=== PATIENT | female | born 1970 | race Two or more races ===

== ENCOUNTER 2024-08-02 23:44 | Emergency (ER) | payer MEDICAID ==
[~2024-08-02] VITALS: Ht 157.5 cm; Wt 54.4 kg
[2024-08-03] MEDS ORDERED: METF-442 PO (00:05)
[2024-08-03] MEDS ORDERED: PROPOFOL 100 ML ONE (02:04)
[2024-08-03] MEDS ORDERED: PROPOFOL 100 ML IV PRN (02:30)
[2024-08-03 02:43] LABS: BASOPHILS % (AUTO) 0.2 % (0.0-2.0); EOSINOPHILS % (AUTO) 0.2 % (0.0-7.0); HEMATOCRIT 44.5 % (31.2-41.9); HEMOGLOBIN 14.9 g/dL (10.9-14.3); LYMPHOCYTES # (AUTO) 1.2 K/uL (0.8-4.8); LYMPHOCYTES % (AUTO) 31.6 % (20.5-51.5); MEAN CORPUSCULAR HEMOGLOBIN 28.8 uug (24.7-32.8); MEAN CORPUSCULAR HGB CONC 34 g/dL (32.3-35.6); MEAN CORPUSCULAR VOLUME 85.9 fL (75.5-95.3); MONOCYTES # (AUTO) 0.2 K/uL (0.1-1.30); MONOCYTES % (AUTO) 4.4 % (0.0-11.0); NEUTROPHILS # (AUTO) 2.5 K/uL (1.8-8.9); NEUTROPHILS % (AUTO) 63.6 % (38.5-71.5); PLATELET COUNT (AUTO) 151 K/uL (179-408); RED BLOOD CELL COUNT(AUTO) 5.18 MIL/uL (3.63-4.92); RED CELL DISTRIBUTION WIDTH 13.8 % (12.3-17.7); WHITE BLOOD COUNT (AUTO) 3.9 K/uL (3.8-11.8)
[2024-08-03 02:44] LABS: DIFFERENTIAL COMMENT 1
[2024-08-03] MEDS: IV NORMAL SALINE 1000 ML BAG IV ONE ×3 (02:45→08:38)
[2024-08-03 02:47] LABS: CALCIUM 8.6 mg/dL (8.5-10.1); CARBON DIOXIDE 23 mmol/L (21-32); CHLORIDE 91 mmol/L (98-107); CREATININE 1.5 mg/dL (0.6-1.3); POTASSIUM 4.5 mmol/L (3.5-5.1); SODIUM SERUM 128 mmol/L (136-145); UREA NITROGEN, BLOOD 35 mg/dL (7-18)
[2024-08-03 02:49] LABS: GLUCOSE 443 mg/dL (74-106)
[2024-08-03] MEDS: VANCOMYCIN IV 1,000 MG in IV DEXTROSE 5% 250 ML IV ONE (02:50)
[2024-08-03 02:59] LABS: LACTIC ACID 7.3 mmol/L (0.4-2.0)
[2024-08-03 03:00] LABS: ALANINE AMINOTRANSFERASE 30 U/L (14-59); ALKALINE PHOSPHATASE 86 U/L (50-136); ASPARTATE AMINOTRANSFERASE 24 U/L (15-37); BILIRUBIN,DIRECT 2.2 mg/dL (0.0-0.2); BILIRUBIN,TOTAL 2.9 mg/dL (0.2-1.0); NT-PRO BNP 1517 pg/mL (0-125); TOTAL PROTEIN, SERUM 7.4 g/dL (6.4-8.2)
[2024-08-03] MEDS ORDERED: VANCOMYCIN IV 200 ML ONE (03:03)
[2024-08-03] MEDS ORDERED: CEFTRIAXONE /D5W 50ML IVPB **ER PYXIS IV ONE (03:03)
[2024-08-03 03:04] LABS: *BILIRUBIN,URIN 1+ (NEGATIVE); *CLARITY,URINE CLEAR (CLEAR); *COLOR,URINE YELLOW (YELLOW); *KETONES,URINE TRACE (NEGATIVE); *PROTEIN,URINE 2+ (NEGATIVE); LEUKOCYTE ESTERASE ,URINE NEGATIVE (NEGATIVE); NITRITE, URINE NEGATIVE (NEGATIVE); UGLUCOSE 3+ (NEGATIVE)
[2024-08-03] MEDS ORDERED: CLINDAMYCIN 600 MG PIGGYBACK**ER OMNI IV ONE (03:04)
[2024-08-03 03:05] LABS: *BLOOD, URINE TRACE (NEGATIVE)
[2024-08-03 03:06] LABS: BACTERIA,URINE FEW /HPF (NONE SEEN); MUCUS,URINE MANY /LPF (0-FEW); RBC,URINE 0-3 /HPF (0-3); SQUAMOUS EPITHELIAL CELL,UR FEW /HPF (NONE SEEN); WBC,URINE 0-3 /HPF (0-3)
[2024-08-03 03:07] LABS: ABG BASE EXCESS -9.9 mmol/L (-2.0-3.0); ABG HCO3 19.8 mmol/L (21.0-28.0); ABG PCO2 58.8 mmHg (32.0-45.0); ABG PH 7.145 (7.350-7.450); ABG PO2 95.9 mmHg (83.0-108.0); ABG SITE RIGHT RADIAL; ABG TOTAL HEMOGLOBIN 15.8 G/dL (12.0-16.0); COHb 0.9 % (0.5-1.5); MetHb 0.2 % (0.0-1.5); O2Hb 94.5 % (94.0-98.0); VT, ABG 500 mL
[2024-08-03] MEDS: CEFTRIAXONE 1 G in IV DEXTROSE 5% 50 ML IV ONE (03:35)
[2024-08-03] MEDS ORDERED: INSULIN REGULAR, HUMAN 1000 UNIT/10 ML VIAL SQ PRN (03:45)
[2024-08-03] MEDS ORDERED: MAGNESIUM HYDROXIDE 30 ML LIQUID UDC PO PRN (03:45)
[2024-08-03] MEDS ORDERED: IV NS 1000 ML 1,000 ML IV PRN (03:45)
[2024-08-03] MEDS ORDERED: ACETAMINOPHEN 325 MG TABLET PO PRN (03:45)
[2024-08-03] MEDS ORDERED: DEXTROSE 50% 50 ML DISP.SYRIN IV PRN (03:45)
[2024-08-03] MEDS ORDERED: ONDANSETRON 4 MG/2 ML VIAL IV PRN (03:45)
[2024-08-03] MEDS ORDERED: REMEDY ESSENTIAL ZINC PASTE 113 GM TP PRN (03:45)
[2024-08-03] MEDS ORDERED: INSULIN REGULAR, HUMAN 1000 UNIT/10 ML VIAL ONE (03:56)
[2024-08-03] MEDS: INSULIN REGULAR, HUMAN 1000 UNIT/10 ML VIAL IV ONE ×2 (03:58→05:07)
[2024-08-03] MEDS: BLOOD SUGAR DIAGNOSTIC 1 EACH STRIP VI SCH (04:04)
[2024-08-03] MEDS: CLINDAMYCIN PHOSPHATE IV 600 MG in IV DEXTROSE 5% 100 ML IV ONE (04:10)
[2024-08-03] MEDS ORDERED: MIDAZOLAM HCL 10 MG/2 ML VIAL ONE (04:15)
[2024-08-03 04:38] LABS: ABG BASE EXCESS -21.5 mmol/L (-2.0-3.0); ABG HCO3 12.8 mmol/L (21.0-28.0); ABG PCO2 73.9 mmHg (32.0-45.0); ABG PH 6.856 (7.350-7.450); ABG PO2 85.5 mmHg (83.0-108.0); ABG SITE RIGHT BRACHIAL; ABG TOTAL HEMOGLOBIN 12.9 G/dL (12.0-16.0); AaDO2 85.4 mmHg; COHb 0.4 % (0.5-1.5); MetHb 0.2 % (0.0-1.5); O2Hb 87.8 % (94.0-98.0); VT, ABG 500 mL
[2024-08-03] MEDS ORDERED: SODIUM BICARBONATE 8.4% 50 MEQ/50 ML DISP.SYRIN IV ONE ×2 (05:22→06:46)
[2024-08-03] MEDS ORDERED: CALCIUM CHLORIDE 1 GM/10 ML DISP.SYRIN IVP ONE ×2 (05:23→06:46)
[2024-08-03] MEDS ORDERED: TRANEXAMIC ACID 1,000 MG/10 ML VIAL ONE (05:49)
[2024-08-03] MEDS: PIPERACILLIN SODIUM/TAZOBACTAM 3.375 G in IV DEXTROSE 5% 50 ML IV SCH (06:00)
[2024-08-03] MEDS ORDERED: NOREPINEPHRINE 8MG/NS 250ML 250 ML IV ONE (06:11)
[2024-08-03 06:30] LABS: ABG BASE EXCESS -25.5 mmol/L (-2.0-3.0); ABG HCO3 10.6 mmol/L (21.0-28.0); ABG PCO2 76.7 mmHg (32.0-45.0); ABG PH 6.757 (7.350-7.450); ABG PO2 101.6 mmHg (83.0-108.0); ABG SITE RIGHT BRACHIAL; ABG TOTAL HEMOGLOBIN 13.2 G/dL (12.0-16.0); COHb 0.4 % (0.5-1.5); MetHb 0.2 % (0.0-1.5); O2Hb 91.2 % (94.0-98.0); VT, ABG 500 mL
[2024-08-03] MEDS ORDERED: SODIUM BICARBONATE 8.4% 150 MEQ in IV D5W 1000ML 1,000 ML IV STA (06:34)
[2024-08-03] MEDS: TRANEXAMIC ACID 1,000 MG/10 ML VIAL IR ONE (06:38)
[2024-08-03 06:52] LABS: BASOPHILS % (AUTO) 0.2 % (0.0-2.0); EOSINOPHILS # (AUTO) 0.1 K/uL (0.0-0.7); EOSINOPHILS % (AUTO) 1.2 % (0.0-7.0); HEMATOCRIT 40.6 % (31.2-41.9); HEMOGLOBIN 12.6 g/dL (10.9-14.3); LYMPHOCYTES # (AUTO) 3.4 K/uL (0.8-4.8); LYMPHOCYTES % (AUTO) 67.4 % (20.5-51.5); MEAN CORPUSCULAR HGB CONC 31 g/dL (32.3-35.6); MEAN CORPUSCULAR VOLUME 93.7 fL (75.5-95.3); MONOCYTES # (AUTO) 0.1 K/uL (0.1-1.30); MONOCYTES % (AUTO) 2.3 % (0.0-11.0); NEUTROPHILS # (AUTO) 1.5 K/uL (1.8-8.9); NEUTROPHILS % (AUTO) 28.9 % (38.5-71.5); PLATELET COUNT (AUTO) 122 K/uL (179-408); RED BLOOD CELL COUNT(AUTO) 4.34 MIL/uL (3.63-4.92); RED CELL DISTRIBUTION WIDTH 14.9 % (12.3-17.7)
[2024-08-03 06:53] LABS: DIFFERENTIAL COMMENT 1
[2024-08-03 06:58] LABS: CALCIUM 10.4 mg/dL (8.5-10.1); POTASSIUM 3.5 mmol/L (3.5-5.1)
[2024-08-03 07:00] VITALS: BP 67/47; O2SAT 90
[2024-08-03] MEDS ORDERED: ETOMIDATE 20 MG/10 ML VIAL ONE (07:00)
[2024-08-03] MEDS: IV NS 1000 ML 1,000 ML IV ONE (07:00)
[2024-08-03] MEDS: NOREPINEPHRINE 8MG/NS 250ML 250 ML IV PRN (07:00)
[2024-08-03] MEDS: MAGNESIUM SULFATE/D5W 100 ML IV SCH (07:00)
[2024-08-03] MEDS ORDERED: ATROPINE SULFATE 1 MG/10 ML DISP.SYRIN ONE (07:07)
[2024-08-03 07:58] LABS: LYMPHOCYTES % (MANUAL) 72 % (20-40); METAMYELOCYTES % 11 % (0-1); MONOCYTES % (MANUAL) 3 % (2-10); MYELOCYTES % 2 % (0-0); NEUTROPHILS % (MANUAL) 12 % (42-75); PLATELET ESTIMATE DECREASED; SMUDGE CELLS FEW
[2024-08-03 08:20] LABS: BASOPHILS % (AUTO) 0.1 % (0.0-2.0); DIFFERENTIAL COMMENT 0; EOSINOPHILS # (AUTO) 0.1 K/uL (0.0-0.7); EOSINOPHILS % (AUTO) 0.8 % (0.0-7.0); HEMATOCRIT 29.4 % (31.2-41.9); HEMOGLOBIN 9.1 g/dL (10.9-14.3); LYMPHOCYTES # (AUTO) 6.1 K/uL (0.8-4.8); LYMPHOCYTES % (AUTO) 77.9 % (20.5-51.5); MEAN CORPUSCULAR HEMOGLOBIN 29.1 uug (24.7-32.8); MEAN CORPUSCULAR HGB CONC 31 g/dL (32.3-35.6); MEAN CORPUSCULAR VOLUME 93.6 fL (75.5-95.3); MONOCYTES # (AUTO) 0.2 K/uL (0.1-1.30); MONOCYTES % (AUTO) 2.9 % (0.0-11.0); NEUTROPHILS # (AUTO) 1.4 K/uL (1.8-8.9); NEUTROPHILS % (AUTO) 18.3 % (38.5-71.5); RED BLOOD CELL COUNT(AUTO) 3.14 MIL/uL (3.63-4.92); RED CELL DISTRIBUTION WIDTH 14.2 % (12.3-17.7); WHITE BLOOD COUNT (AUTO) 7.9 K/uL (3.8-11.8)
[2024-08-03 08:24] LABS: PLATELET COUNT (AUTO) 49 K/uL (179-408)
[2024-08-03 08:26] LABS: LYMPHOCYTES % (MANUAL) 72 % (20-40); MONOCYTES % (MANUAL) 3 % (2-10); NEUTROPHILS % (MANUAL) 12 % (42-75)
[2024-08-03 08:27] LABS: METAMYELOCYTES % 11 % (0-1); MYELOCYTES % 3 % (0-0); PLATELET ESTIMATE MARKED DECREASED; SMUDGE CELLS FEW
[2024-08-03 08:33] LABS: CALCIUM 7.1 mg/dL (8.5-10.1); CREATININE 1.3 mg/dL (0.6-1.3); POTASSIUM 3.6 mmol/L (3.5-5.1)
[2024-08-03] MEDS: PANTOPRAZOLE SODIUM 40 MG VIAL IV SCH (09:00)
[2024-08-03 09:27] LABS: *AMPHETAMINE, URINE POSITIVE (NEGATIVE); *BARBITURATE, URINE NEGATIVE (NEGATIVE); *BENZODIAZEPINE, URINE NEGATIVE (NEGATIVE); *CANNABINOID, URINE NEGATIVE (NEGATIVE); *COCCAINE, URINE NEGATIVE (NEGATIVE); *OPIATE, URINE NEGATIVE (NEGATIVE); *PHENCYCLIDINE SCREEN,URINE NEGATIVE (NEGATIVE); FENTANYL, URINE POSITIVE (NEGATIVE)
[2024-08-03] MEDS: MIDAZOLAM HCL 50 MG in IV NORMAL SALINE 40 ML IV PRN (10:41)
[2024-08-03 11:24] LABS: ABG BASE EXCESS 15.8 mmol/L (-2.0-3.0); ABG HCO3 42.9 mmol/L (21.0-28.0); ABG PCO2 75.3 mmHg (32.0-45.0); ABG PH 7.374 (7.350-7.450); ABG SITE RIGHT BRACHIAL; ABG TOTAL HEMOGLOBIN 7.5 G/dL (12.0-16.0); COHb 0.3 % (0.5-1.5); MetHb 0.7 % (0.0-1.5); O2Hb 95.2 % (94.0-98.0)
[2024-08-03 11:28] LABS: ABG BASE EXCESS -18.6 mmol/L (-2.0-3.0); ABG HCO3 17.7 mmol/L (21.0-28.0); ABG PCO2 141.2 mmHg (32.0-45.0); ABG PH 6.716 (7.350-7.450); ABG PO2 89.1 mmHg (83.0-108.0); ABG SITE RIGHT BRACHIAL; ABG TOTAL HEMOGLOBIN 9.1 G/dL (12.0-16.0); AaDO2 80.2 mmHg; COHb 0.6 % (0.5-1.5); MetHb 0.3 % (0.0-1.5); O2Hb 84.7 % (94.0-98.0)
== END 2024-08-03 12:09 ==
LOC: ER 23:47
DX: A41.9 Sepsis, unspecified organism (principal); R65.21 Severe sepsis with septic shock; J96.00 Acute respiratory failure, unspecified whether with hypoxia or hypercapnia; J18.9 Pneumonia, unspecified organism; R04.2 Hemoptysis; R05.8 Other specified cough; J90 Pleural effusion, not elsewhere classified; E11.65 Type 2 diabetes mellitus with hyperglycemia; F17.210 Nicotine dependence, cigarettes, uncomplicated; Z79.84 Long term (current) use of oral hypoglycemic drugs; Z90.49 Acquired absence of other specified parts of digestive tract
CPT/HCPCS: 36415; 36556; 36600; 71045; 82803; 83605; 83735; 84484; 85025; 85730; 86850; 86900; 86901; 87040; 87077; 87086; 92950; 94002; A4606; A4663; J0171; J0461; J0696; J1815; J2250; J3370; J3490; J7040; J7070